=== PATIENT | female | born 1995 | race Caucasian/White ===

== ENCOUNTER 2018-04-13 19:45 | Emergency (ER) | payer SELFPAY ==
[2018-04-13 20:23] VITALS: BP 111/71; TEMP 98; O2SAT 99
[2018-04-13] MEDS ORDERED: predniSONE 20 MG TAB PO ONE (20:28)
[2018-04-13] MEDS ORDERED: CETIRIZINE HCL 10 MG TAB PO ONE (20:28)
--- NOTE | 2018-04-13 20:31 | ED.PDOC ---
History of Present Illness - General Chief Complaint: General Stated Complaint: sore tongue Time Seen by Provider: 04/13/18 20:21 Source: patient Exam Limitations: no limitations - History of Present Illness Initial Comments: The patient a 23-year-old female presenting to the emergency room secondary to mouth symptoms. The patient has had some mild numbness of her mouth in general for the last couple of days with some poor taste. This evening she started noticing some burning and swelling primarily to her left cheek and mildly to the roof of her mouth. No shortness of breath or hoarseness. No rash elsewhere. 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 No fevers. No chest pain. No evidence of any bleeding. Timing/Duration: unsure Severity: mild Improving Factors: nothing Worsening Factors: nothing Associated Symptoms: denies symptoms Allergies/Adverse Reactions: Allergies NO KNOWN ALLERGY Allergy (Unverified 01/16/14 23:58) Home Medications: Ambulatory Orders predniSONE [Prednisone] 20 mg PO DAILY #3 tab 04/13/18 Review of Systems - Review of Systems Constitutional: States: no symptoms reported EENTM: States: see HPI Respiratory: States: no symptoms reported Cardiology: States: no symptoms reported Gastrointestinal/Abdominal: States: no symptoms reported Genitourinary: States: no symptoms reported Musculoskeletal: States: no symptoms reported Skin: States: no symptoms reported Neurological: States: no symptoms reported Endocrine: States: no symptoms reported All other Systems: No Change from Baseline Past Medical History (General) - Patient Medical History Hx Seizures: No Hx Stroke: No Hx Dementia: No Hx Asthma: No Hx of COPD: No Hx Cardiac Disorders: No Hx Congestive Heart Failure: No Hx Pacemaker: No Hx Hypertension: No Hx Thyroid Disease: No Hx Diabetes: No Hx Gastroesophageal Reflux: No Hx Renal Disease: No Hx Cancer: No Hx of HIV: No Hx Hepatitis C: No Hx MRSA: No Surgical History: appendectomy, tonsillectomy - Vaccination History Hx Tetanus, Diphtheria Vaccination: Yes Hx Influenza Vaccination: No Hx Pneumococcal Vaccination: No Immunizations Up to Date: No - Social History Hx Tobacco Use: No Hx Alcohol Use: No Hx Substance Use: No Hx Substance Use Treatment: No Hx Depression: No Hx Physical Abuse: No Hx Emotional Abuse: No Hx Suspected Abuse: No - Female History Hx Last Menstrual Period: 03/17/14 Patient : Yes Expected Date of Delivery:: 03/08/14 Family Medical History - Family History Grandparents Living Status: Still Living Hx Cardiac Disease: Yes - HEART BY PASS Hx Family Diabetes: Yes Physical Exam - Physical Exam General Appearance: Alert, Comfortable, No apparent distress Eye Exam: bilateral normal Ears, Nose, Throat: hearing grossly normal, other - see history of present illness. The patient has a 1 inch diameter area of mucosalerythema and mild edema to the left cheek. She does have mild diffuse papillitis. No posterior oropharynx erythema or exudate. No abscess. 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 It is likely viral versus allergic and most likely allergic. The patient is going to be given a dose of prednisone and Zyrtec here tonight. She'll be written for 20 mg of prednisone daily for the next 3 days and she can take Zyrtec nightly for the next week. I would encourage her to avoid eating the skilled nursing food for now as there may be preservative triggering the reaction. Keep well-hydrated. Return to the emergency room for any significant worsening. There is no evidence of pulmonary symptoms or angioedema at this time. Keep follow-up with primary care doctor as otherwise scheduled previously. Departure - Departure Clinical Impression: Stomatitis and mucositis, unspecified Disposition: Discharge to Home or Self Care Condition: Fair Departure Forms: ED Discharge - Pt. Copy, Patient Portal Self Enrollment Diet: regular diet Activity: increase activity as tolerated Prescriptions: predniSONE [Prednisone] 20 mg PO DAILY #3 tab Home Medications: Ambulatory Orders predniSONE [Prednisone] 20 mg PO DAILY #3 tab 04/13/18 Additional Instructions: the patient is a 23-year-old female presenting to the emergency room with what is a stomatitis of uncertain origin. It is likely viral versus allergic and most likely allergic. The patient is going to be given a dose of prednisone and Zyrtec here tonight. She'll be written for 20 mg of prednisone daily for the next 3 days and she can take Zyrtec nightly for the next week. I would encourage her to avoid eating the skilled nursing food for now as there may be preservative triggering the reaction. Keep well-hydrated. Return to the emergency room for any significant worsening. There is no evidence of pulmonary symptoms or angioedema at this time. Keep follow-up with primary care doctor as otherwise scheduled previously.
== END 2018-04-13 20:55 | disposition home or self-care (01) ==
LOC: ER 19:45
DX: K12.1 Other forms of stomatitis (principal)

== ENCOUNTER 2018-07-04 01:36 | Emergency (ER) | payer SELFPAY ==
[2018-07-04 02:00] VITALS: TEMP 98.7
--- NOTE | 2018-07-04 02:30 | RAD ---
2 VIEWS left FOREARM RADIOGRAPHIC SERIES. INDICATIONS: Worsening pain. COMPARISONS: None currently available. FINDINGS: No fractures or dislocations. The partially visualized left wrist and left elbow and back are intact. No evidence of carpal bone osteonecrosis. No radiopaque soft tissue foreign bodies or soft tissue gas. IMPRESSION: 1. Normal examination. Electronically signed by: Melo Staley MD 07/04/2018 2:29 AM CDT
--- NOTE | 2018-07-04 02:37 | RAD ---
The VIEWS LEFT WRIST RADIOGRAPHIC SERIES. INDICATIONS: Increasing chronic pain. COMPARISONS: Today's forearm radiographs. FINDINGS: 4 mm positive ulnar variance without evidence of carpal bone osteonecrosis. No fractures or dislocations. Benign-appearing 4 mm cystic structure structure in the distal left scaphoid bone. The distal left radius and ulna are intact. No radiopaque soft tissue foreign bodies or soft tissue gas. IMPRESSION: 1. 4 mm positive ulnar variance without evidence of carpal bone osteonecrosis. 2. No fractures, dislocations or evidence of DISI deformity. 3. Benign-appearing well-demarcated 4 mm cyst in the distal left scaphoid bone. Electronically signed by: Melo Staley MD 07/04/2018 2:36 AM CDT
--- NOTE | 2018-07-04 02:49 | ED.PDOC ---
History of Present Illness - General Chief Complaint: Upper Extremity Injury Stated Complaint: left forearm pain Time Seen by Provider: 07/04/18 02:42 Source: patient Exam Limitations: no limitations - History of Present Illness Initial Comments: Lacie Roland 23 y/o female stated that she had been having sharp pains on her left forearm for the last 2 days intermittenly aggravated by stretching her left wrist upwards.Denies history of trauma or repetetive movement with left wrist/forearm.She is right handed.No history of previous injury.No numbness or tingling sensation Occurred: other - 2 days ago Pain - Upper Extremity: moderate: Forearm, left, Wrist, left Method of Injury: unknown Improving Factors: rest Worsening Factors: movement Allergies/Adverse Reactions: Allergies NO KNOWN ALLERGY Allergy (Unverified 01/16/14 23:58) Home Medications: Ambulatory Orders predniSONE [Prednisone] 20 mg PO DAILY #3 tab 04/13/18 Review of Systems - Review of Systems Constitutional: States: no symptoms reported EENTM: States: no symptoms reported Respiratory: States: no symptoms reported Cardiology: States: no symptoms reported Gastrointestinal/Abdominal: States: no symptoms reported Genitourinary: States: no symptoms reported Musculoskeletal: States: see HPI Skin: States: no symptoms reported Past Medical History (General) - Patient Medical History Hx Seizures: No Hx Stroke: No Hx Dementia: No Hx Asthma: No Hx of COPD: No Hx Cardiac Disorders: No Hx Congestive Heart Failure: No Hx Pacemaker: No Hx Hypertension: No Hx Thyroid Disease: No Hx Diabetes: No Hx Gastroesophageal Reflux: No Hx Renal Disease: No Hx Cancer: No Hx of HIV: No Hx Hepatitis C: No Hx MRSA: No Surgical History: appendectomy, tonsillectomy, other - fundoplication, tympanostomy tubes,,endometriosis diathermy - Vaccination History Hx Tetanus, Diphtheria Vaccination: Yes Hx Influenza Vaccination: No Hx Pneumococcal Vaccination: No - Social History Hx Tobacco Use: No Hx Alcohol Use: No Hx Substance Use: No Hx Substance Use Treatment: No Hx Depression: No Hx Physical Abuse: No Hx Emotional Abuse: No Hx Suspected Abuse: No - Female History Patient is a Female of Child Bearing Age (10 -59 yrs old): Yes Hx Last Menstrual Period: 03/17/14 Patient : No Expected Date of Delivery:: 03/08/14 - Triage Comment ED Triage Comment: Denies any known trauma to left forearm, gradual increase in pain over past two days Family Medical History - Family History Grandparents Living Status: Still Living Hx Cardiac Disease: Yes - HEART BY PASS Hx Family Diabetes: Yes Physical Exam - Physical Exam General Appearance: Alert, Comfortable, No apparent distress Eyes, Ears, Nose, Throat Exam: normal ENT inspection Neck: non-tender, supple, normal inspection Cardiovascular/Respiratory: regular rate, rhythm, normal peripheral pulses, normal breath sounds Abdominal Exam: non-tender, no organomegaly Back Exam: no CVA tenderness, no vertebral tenderness Shoulder Exam: normal inspection, non-tender, no evidence of injury, normal ROM Elbow/Forearm Exam: normal inspection, no evidence of injury, bone tenderness, limited ROM - pain on extension of foream wrist left, soft tissue tenderness Wrist Exam: no evidence of injury, limited ROM - left wrist-pain on extension Hand Exam: normal inspection, non-tender, no evidence of injury Neuro/Tendon: normal sensation, normal motor functions, normal tendon functions , no evidence tendon injury Mental Status: alert, oriented x 3 Progress - Progress Progress: 07/04/18 03:00 Vital Signs - 8 hr 07/04/18 01:52 Temperature 98.7 F Pulse Rate [ 68 Left] Respiratory 16 Rate Blood Pressure 109/72 [Right Arm] O2 Sat by Pulse 99 Oximetry - EKG/XRAY/CT XRAY: forearm - left-4 mm cyst scaphoid,no fracture/dislocation Departure - Departure Clinical Impression: Left forearm pain, Tendinitis of forearm Time of Disposition: 03:02 Disposition: Discharge to Home or Self Care Condition: Good Departure Forms: ED Discharge - Pt. Copy, Patient Portal Self Enrollment Instructions: Tendonitis, Tendonitis (DC), Tendinopathy (DC) Home Medications: Ambulatory Orders predniSONE [Prednisone] 20 mg PO DAILY #3 tab 04/13/18 Additional Instructions: Need to follow up with primary Md for referral to orthopedist;May take ALEVE( over the counter)1-2 tablets am/pm for pain;May GO BACK to WORK WITHOUT RESTRICTIONS
[2018-07-04] MEDS ORDERED: KETOROLAC TROMETHAMINE INJ 30 MG/ML VIAL IM ONE (03:03)
[2018-07-04 03:30] VITALS: BP 110/70; O2SAT 100
== END 2018-07-04 03:30 | disposition home or self-care (01) ==
LOC: ER 01:36
DX: M77.9 Enthesopathy, unspecified (principal); M85.442 Solitary bone cyst, left hand
CPT/HCPCS: 73090; 73110; J1885

== ENCOUNTER 2018-10-02 12:37 | Emergency (ER) | payer SELFPAY ==
[2018-10-02] MEDS ORDERED: ONDANSETRON INJ 4 MG/2 ML VIAL IM ONE (13:13)
--- NOTE | 2018-10-02 13:16 | ED.PDOC ---
History of Present Illness - General Chief Complaint: General Stated Complaint: Congestion, cough, fever Time Seen by Provider: 10/02/18 13:12 Source: patient Exam Limitations: no limitations - History of Present Illness Initial Comments: FEVER, COUGH. NASAL CONGESTION AND VOMITING SINCE WEDNESDAY. ON HER PERIOD. Timing/Duration: other - FIVE DAYS AGO Improving Factors: nothing Worsening Factors: nothing Associated Symptoms: cough, fever/chills, malaise Allergies/Adverse Reactions: Allergies NO KNOWN ALLERGY Allergy (Verified 10/02/18 12:57) Home Medications: Ambulatory Orders Ondansetron HCl [Zofran] 4 mg PO Q8HRS #6 ml 10/02/18 Review of Systems - Review of Systems Constitutional: States: fever EENTM: States: nose congestion Respiratory: States: cough Cardiology: States: no symptoms reported Gastrointestinal/Abdominal: States: no symptoms reported Genitourinary: States: no symptoms reported Musculoskeletal: States: no symptoms reported Skin: States: no symptoms reported Neurological: States: no symptoms reported Endocrine: States: no symptoms reported Hematologic/Lymphatic: States: no symptoms reported Past Medical History (General) - Patient Medical History Hx Seizures: No Hx Stroke: No Hx Dementia: No Hx Asthma: No Hx of COPD: No Hx Cardiac Disorders: No Hx Congestive Heart Failure: No Hx Pacemaker: No Hx Hypertension: No Hx Thyroid Disease: No Hx Diabetes: No Hx Gastroesophageal Reflux: No Hx Renal Disease: No Hx Cancer: No Hx of HIV: No Hx Hepatitis C: No Hx MRSA: No Surgical History: appendectomy, tonsillectomy, other - Vaccination History Hx Tetanus, Diphtheria Vaccination: Yes Hx Influenza Vaccination: No Hx Pneumococcal Vaccination: No - Social History Hx Tobacco Use: No Hx Alcohol Use: No Hx Substance Use: No Hx Substance Use Treatment: No Hx Depression: No Hx Physical Abuse: No Hx Emotional Abuse: No Hx Suspected Abuse: No - Female History Patient is a Female of Child Bearing Age (10 -59 yrs old): Yes Hx Last Menstrual Period: 03/17/14 Patient : No Expected Date of Delivery:: 03/08/14 Family Medical History - Family History Grandparents Living Status: Still Living Hx Cardiac Disease: Yes - CABG Hx Family Diabetes: Yes Physical Exam - Physical Exam General Appearance: Alert, No apparent distress, Well Developed, Well Hydrated Eye Exam: bilateral normal Ears, Nose, Throat: nasal congestion Neck: non-tender, full range of motion, supple Respiratory: lungs clear, normal breath sounds Cardiovascular/Chest: normal peripheral pulses, regular rate, rhythm, no edema, no gallop, no JVD, no murmur Peripheral Pulses: radial,right: 2+, radial,left: 2+ Gastrointestinal/Abdominal: normal bowel sounds, non tender, soft, no organomegaly, no pulsatile mass Rectal Exam: deferred Extremity: normal range of motion Neurologic: no motor/sensory deficits, normal mood/affect, oriented x 3 Skin Exam: normal color Progress - Progress Progress: 10/02/18 14:50 THE INFLUENZA TEST IS NEGATIVE. Departure - Departure Clinical Impression: Flu-like symptoms, Vomiting Time of Disposition: 14:51 Disposition: Discharge to Home or Self Care Condition: Good Departure Forms: ED Discharge - Pt. Copy, Patient Portal Self Enrollment Diet: resume usual diet Activity: increase activity as tolerated Prescriptions: Ondansetron HCl [Zofran] 4 mg PO Q8HRS #6 ml Home Medications: Ambulatory Orders Ondansetron HCl [Zofran] 4 mg PO Q8HRS #6 ml 10/02/18
[2018-10-02 15:14] VITALS: BP 126/77; TEMP 98.2; O2SAT 97
== END 2018-10-02 15:13 | disposition home or self-care (01) ==
LOC: ER 12:37
DX: J11.1 Influenza due to unidentified influenza virus with other respiratory manifestations (principal); R11.10 Vomiting, unspecified; Z90.49 Acquired absence of other specified parts of digestive tract
CPT/HCPCS: 87804; J2405

== ENCOUNTER 2018-10-08 10:58 | Emergency (ER) | payer SELFPAY ==
--- NOTE | 2018-10-08 11:38 | ED.PDOC ---
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 Timing/Duration: yesterday Quality: moderate Onset Location: other - epigastric Radiation: none Activites at Onset: other - see hpi Prior abdominal problems: none Sexual intercourse history: less than 2 months ago Improving Factors: nothing Worsening Factors: eating Associated Symptoms: other - see hpi Allergies/Adverse Reactions: Allergies NO KNOWN ALLERGY Allergy (Verified 10/02/18 12:57) Home Medications: Ambulatory Orders Biotin [Biotin Gummies] 1,000 mcg PO DAILY 10/08/18 Tramadol HCl 50 mg PO TID PRN #14 tab 10/08/18 Valacyclovir HCl [Valtrex] 1 gm PO BID 10 Days #20 tab 10/08/18 Review of Systems - Review of Systems Gastrointestinal/Abdominal: States: see HPI Genitourinary: States: see HPI All other Systems: Reviewed and Negative, No Change from Baseline Past Medical History (General) - Patient Medical History Hx Seizures: No Hx Stroke: No Hx Dementia: No Hx Asthma: No Hx of COPD: No Hx Cardiac Disorders: No Hx Congestive Heart Failure: No Hx Pacemaker: No Hx Hypertension: No Hx Thyroid Disease: No Hx Diabetes: No Hx Gastroesophageal Reflux: No Hx Renal Disease: No Hx Cancer: No Hx of HIV: No Hx Hepatitis C: No Hx MRSA: No Hx Other PMH: Yes - endometriosis Surgical History: appendectomy, tonsillectomy, other - ,hiatal hernia, tympanostomy tubes,laparoscopic explore-endometriosis - Vaccination History Hx Tetanus, Diphtheria Vaccination: Yes Hx Influenza Vaccination: No Hx Pneumococcal Vaccination: No - Social History Hx Tobacco Use: No Hx Alcohol Use: No Hx Substance Use: No Hx Substance Use Treatment: No Hx Depression: No Hx Physical Abuse: No Hx Emotional Abuse: No Hx Suspected Abuse: No - Female History Hx Last Menstrual Period: 03/17/14 Patient : No Expected Date of Delivery:: 03/08/14 Family Medical History - Family History Grandparents Living Status: Still Living Hx Cardiac Disease: Yes - CABG Hx Family Diabetes: Yes Physical Exam - Physical Exam General Appearance: Alert, Comfortable, No apparent distress Eyes, Ears, Nose, Throat Exam: normal ENT inspection Neck: non-tender, supple Cardiovascular/Respiratory: regular rate, rhythm, no M/R/G, normal peripheral pulses Gastrointestinal/Abdominal: normal bowel sounds, non tender, soft, no organomegaly Pelvic Exam: no cerv. motion tender, no masses, lesions, other - aphthae like eruption cervix and left lateral vaginal wall as wellas labia majora Extremity: no pedal edema, no calf tenderness Neurologic: alert, oriented x 3 Skin Exam: normal color, warm/dry Progress - Progress Progress: 10/08/18 11:56 Vital Signs - 8 hr 10/08/18 11:05 Temperature 99.7 F H Pulse Rate [ 101 H left brachial] Respiratory 20 Rate Blood Pressure 113/80 [left brachial] O2 Sat by Pulse 98 Oximetry 10/08/18 12:18 Took different culture swab not intended for the herpes culture and ask permission from the patient to get confirmatory findings but declined to have repeat pelvic exam done.Explained to patient the genital typical of herpes simplex genitalis and explained that needs medications agrred with plan and 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 - Results/Orders Results/Orders: 10/08/18 11:38 URINE CULTURE W/COLONY COUNT Stat HERPES CULTURE RAPID Stat 10/08/18 11:39 GC CHLAMYDIA RNA,TMA Routine 10/08/18 21:00 valACYclovir [Valtrex] 1,000 mg PO BID Laboratory Results - last 24 hr 10/08/18 10/08/18 10/08/18 11:38 12:14 12:14 WBC 6.1 RBC 4.65 Hgb 13.0 Hct 39.0 MCV 83.8 MCH 28.0 MCHC 33.4 RDW 14.5 Plt Count 241 MPV 8.0 Absolute Neuts (auto) 4.40 Absolute Lymphs (auto) 1.00 Absolute Monos (auto) 0.60 Absolute Eos (auto) 0.10 Absolute Basos (auto) 0.00 Neutrophils % 72.3 Lymphocytes % 16.9 L Monocytes % 9.2 H Eosinophils % 1.3 Basophils % 0.3 Sodium 140 Potassium 4.1 Chloride 106 Carbon Dioxide 27 Anion Gap 11.1 L BUN 10 Creatinine 0.79 BUN/Creatinine Ratio 12.7 Random Glucose 88 Serum Osmolality 277.9 Calcium 9.0 Urine Color Yellow Urine Appearance Clear Urine pH 5.5 Ur Specific [place] >= 1.030 Urine Protein Trace Urine Glucose (UA) Negative Urine Ketones Negative Urine Blood Trace-intact H Urine Nitrite Negative Urine Bilirubin Negative Urine Urobilinogen 0.2 Ur Leukocyte Esterase Small H Urine RBC 5-10 H Urine WBC 5-10 H Ur Epithelial Cells 3-5 Urine Bacteria 1+ Urine Mucus Small Urine HCG, Qual 10/08/18 Unknown WBC RBC Hgb Hct MCV MCH MCHC RDW Plt Count MPV Absolute Neuts (auto) Absolute Lymphs (auto) Absolute Monos (auto) Absolute Eos (auto) Absolute Basos (auto) Neutrophils % Lymphocytes % Monocytes % Eosinophils % Basophils % Sodium Potassium Chloride Carbon Dioxide Anion Gap BUN Creatinine BUN/Creatinine Ratio Random Glucose Serum Osmolality Calcium Urine Color Urine Appearance Urine pH Ur Specific [place] Urine Protein Urine Glucose (UA) Urine Ketones Urine Blood Urine Nitrite Urine Bilirubin Urine Urobilinogen Ur Leukocyte Esterase Urine RBC Urine WBC Ur Epithelial Cells Urine Bacteria Urine Mucus Urine HCG, Qual Negative Departure - Departure Clinical Impression: Vaginal pain, Vaginal lesion, Abdominal discomfort, epigastric Time of Disposition: 12:43 Disposition: Discharge to Home or Self Care Condition: Fair Departure Forms: ED Discharge - Pt. Copy, Patient Portal Self Enrollment Instructions: Pelvic Inflammatory Disease, Genital Herpes, Chlamydia and Gonorrhea, Pelvic Inflammatory Disease (DC), Genital Herpes (DC), Screening for Sexually Transmitted Infections Prescriptions: Tramadol HCl 50 mg PO TID PRN #14 tab PRN Reason: Pain Valacyclovir HCl [Valtrex] 1 gm PO BID 10 Days #20 tab Home Medications: Ambulatory Orders Biotin [Biotin Gummies] 1,000 mcg PO DAILY 10/08/18 Tramadol HCl 50 mg PO TID PRN #14 tab 10/08/18 Valacyclovir HCl [Valtrex] 1 gm PO BID 10 Days #20 tab 10/08/18 Additional Instructions: Keep your appointment with CULINARY ARTIST 12 Oct 2018;return to ER as needed
[2018-10-08 11:41] VITALS: BP 113/80; TEMP 99.7; O2SAT 98
[2018-10-08] MEDS: SUCRALFATE 1 GM/10 ML 1 GM UD PO ONE (12:01)
[2018-10-08] MEDS: PANTOPRAZOLE SODIUM TAB 40 MG PO ONE (12:01)
[2018-10-08] MEDS: PROMETHAZINE HCL 25 MG TAB PO ONE (12:01)
[2018-10-08] MEDS: AZITHROMYCIN 250 MG TAB PO ONE (12:13)
[2018-10-08] MEDS ORDERED: valACYclovir 500 MG TAB ONE (12:26)
[2018-10-08] MEDS: valACYclovir 500 MG TAB PO SCH (12:28)
== END 2018-10-08 12:52 | disposition home or self-care (01) ==
LOC: ER 10:58
DX: N89.8 Other specified noninflammatory disorders of vagina (principal); R10.2 Pelvic and perineal pain; R10.13 Epigastric pain; R11.2 Nausea with vomiting, unspecified; Z87.42 Personal history of other diseases of the female genital tract
CPT/HCPCS: 36415; 80048; 81001; 81025; 85025; 87086; 87491; 87591; J0696; Q0144; Q0169

== ENCOUNTER 2018-10-29 20:10 | Emergency (ER) | payer BC ==
[2018-10-29] MEDS ORDERED: ONDANSETRON ODT 8 MG TAB SL ONE (20:25)
[2018-10-29 20:38] VITALS: BP 113/69; TEMP 99.3; O2SAT 95
--- NOTE | 2018-10-29 20:46 | ED.PDOC ---
History of Present Illness - General Chief Complaint: GI Problem Stated Complaint: N/V x's 2 days Time Seen by Provider: 10/29/18 20:20 Source: patient Exam Limitations: no limitations - History of Present Illness Initial Comments: the patient is a 23-year-old female presenting to emergency room secondary to 24 hours of nausea with a couple of episodes of vomiting. No diarrhea. No abdominal pain. Questionable low-grade fevers. No sore throat. No cough. Her significant other had some nausea and vomiting 3 days ago. Timing/Duration: 24 hours Severity: mild Improving Factors: nothing Worsening Factors: nothing Associated Symptoms: loss of appetite, nausea/vomiting Allergies/Adverse Reactions: Allergies NO KNOWN ALLERGY Allergy (Verified 10/29/18 20:37) Home Medications: Ambulatory Orders Ondansetron [Zofran Odt] 4 mg PO Q4H PRN #10 tab 10/29/18 Review of Systems - Review of Systems Constitutional: States: fever, malaise EENTM: States: no symptoms reported Respiratory: States: no symptoms reported Cardiology: States: no symptoms reported Gastrointestinal/Abdominal: States: nausea, vomiting. Denies: abdominal pain, constipation, diarrhea Genitourinary: States: no symptoms reported Musculoskeletal: States: no symptoms reported Skin: States: no symptoms reported Neurological: States: no symptoms reported All other Systems: No Change from Baseline Past Medical History (General) - Patient Medical History Hx Seizures: No Hx Stroke: No Hx Dementia: No Hx Asthma: No Hx of COPD: No Hx Cardiac Disorders: No Hx Congestive Heart Failure: No Hx Pacemaker: No Hx Hypertension: No Hx Thyroid Disease: No Hx Diabetes: No Hx Gastroesophageal Reflux: No Hx Renal Disease: No Hx Cancer: No Hx of HIV: No Hx Hepatitis C: No Hx MRSA: No Surgical History: appendectomy, tonsillectomy - Vaccination History Hx Tetanus, Diphtheria Vaccination: Yes Hx Influenza Vaccination: No Hx Pneumococcal Vaccination: No - Social History Hx Tobacco Use: No Hx Alcohol Use: No Hx Substance Use: No Hx Substance Use Treatment: No Hx Depression: No Hx Physical Abuse: No Hx Emotional Abuse: No Hx Suspected Abuse: No - Female History Hx Last Menstrual Period: 03/17/14 Patient : No Expected Date of Delivery:: 03/08/14 Family Medical History - Family History Grandparents Living Status: Still Living Hx Cardiac Disease: Yes - CABG Hx Family Diabetes: Yes Physical Exam - Physical Exam General Appearance: Alert, Comfortable, No apparent distress Eye Exam: bilateral normal Ears, Nose, Throat: hearing grossly normal, normal ENT inspection, normal pharynx Neck: full range of motion, supple Respiratory: lungs clear, normal breath sounds, no respiratory distress, no accessory muscle use Cardiovascular/Chest: normal peripheral pulses, regular rate, rhythm, no edema Peripheral Pulses: radial,right: 2+, radial,left: 2+, dorsalis pedis,right: 2+, dorsalis pedis,left: 2+ Gastrointestinal/Abdominal: non tender, soft Rectal Exam: deferred Back Exam: normal inspection Extremity: non-tender, no pedal edema, normal capillary refill 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 A close contact had similar symptoms a few days ago. She needs to keep herself well-hydrated. She'll be written for Zofran for as needed use to control any nausea and vomiting. She should expect symptoms for the next 24-48 hours. ER warnings were given for any significant worsening. A bland diet with small frequent meals is recommended. Departure - Departure Clinical Impression: Gastroenteritis Disposition: Discharge to Home or Self Care Condition: Fair Departure Forms: ED Discharge - Pt. Copy, Patient Portal Self Enrollment Instructions: Viral Gastroenteritis, Adult (DC) Diet: bland diet Activity: increase activity as tolerated Prescriptions: Ondansetron [Zofran Odt] 4 mg PO Q4H PRN #10 tab PRN Reason: Vomiting Home Medications: Ambulatory Orders Ondansetron [Zofran Odt] 4 mg PO Q4H PRN #10 tab 10/29/18 Additional Instructions: The patient's 23-year-old female presenting to the emergency room with what appears to be a viral gastroenteritis. A close contact had similar symptoms a few days ago. She needs to keep herself well-hydrated. She'll be written for Zofran for as needed use to control any nausea and vomiting. She should expect symptoms for the next 24-48 hours. ER warnings were given for any significant worsening. A bland diet with small frequent meals is recommended.
[2018-10-29] MEDS ORDERED: ACETAMINOPHEN 325 MG TAB PO ONE (20:47)
== END 2018-10-29 21:07 | disposition home or self-care (01) ==
LOC: ER 20:10
DX: K52.9 Noninfective gastroenteritis and colitis, unspecified (principal); Z90.49 Acquired absence of other specified parts of digestive tract

== ENCOUNTER 2018-12-23 14:15 | Emergency (ER) | payer BC ==
--- NOTE | 2018-12-23 14:38 | ED.PDOC ---
History of Present Illness - General Chief Complaint: GI Problem Time Seen by Provider: 12/23/18 14:38 Source: patient, RN notes reviewed Exam Limitations: no limitations Additional Information: 23 YEAR OLD PRESENTS WITH VOMITING DIARRHEA SINCE YESTERDAY AFTERNOON ASSOCIATED WITH ABDOMINAL PAIN ( CRAMPS ) NO BLOOD OR MUCOUS IN STOOLS HER DAUGHTER HAD SIMILAR SYMPTOMS JUST RECOVERED - History of Present Illness Timing/Duration: 24 hours Severity: moderate Improving Factors: nothing Worsening Factors: nothing Associated Symptoms: denies symptoms Allergies/Adverse Reactions: Allergies NO KNOWN ALLERGY Allergy (Verified 10/29/18 20:37) Home Medications: Ambulatory Orders Promethazine Tab [Phenergan Tablet] 25 mg PO .Q4H #20 tab 12/23/18 Review of Systems - Review of Systems Constitutional: States: malaise, weakness EENTM: States: no symptoms reported Respiratory: States: no symptoms reported Cardiology: States: no symptoms reported Gastrointestinal/Abdominal: States: see HPI Genitourinary: States: no symptoms reported Musculoskeletal: States: no symptoms reported Skin: States: no symptoms reported Neurological: States: no symptoms reported Endocrine: States: no symptoms reported Hematologic/Lymphatic: States: no symptoms reported Past Medical History (General) - Patient Medical History Hx Seizures: No Hx Stroke: No Hx Dementia: No Hx Asthma: No Hx of COPD: No Hx Cardiac Disorders: No Hx Congestive Heart Failure: No Hx Pacemaker: No Hx Hypertension: No Hx Thyroid Disease: No Hx Diabetes: No Hx Gastroesophageal Reflux: No Hx Renal Disease: No Hx Cancer: No Hx of HIV: No Hx Hepatitis C: No Hx MRSA: No - Vaccination History Hx Tetanus, Diphtheria Vaccination: Yes Hx Influenza Vaccination: No Hx Pneumococcal Vaccination: No - Social History Hx Tobacco Use: No Hx Alcohol Use: No Hx Substance Use: No Hx Substance Use Treatment: No Hx Depression: No Hx Physical Abuse: No Hx Emotional Abuse: No Hx Suspected Abuse: No - Female History Hx Last Menstrual Period: 03/17/14 Patient : No Expected Date of Delivery:: 03/08/14 Family Medical History - Family History Grandparents Living Status: Still Living Hx Cardiac Disease: Yes - CABG Hx Family Diabetes: Yes Physical Exam - Physical Exam General Appearance: Alert, Comfortable Ears, Nose, Throat: hearing grossly normal, normal ENT inspection, normal pharynx Neck: non-tender, full range of motion, supple Respiratory: chest non-tender, lungs clear, normal breath sounds, no respiratory distress, no accessory muscle use, respiratory distress, decreased breath sounds Cardiovascular/Chest: normal peripheral pulses, regular rate, rhythm, no edema, no gallop, no JVD, no murmur Gastrointestinal/Abdominal: normal bowel sounds, non tender, soft, no organomegaly, no pulsatile mass Back Exam: normal inspection, no CVA tenderness, no vertebral tenderness Extremity: normal range of motion, non-tender, normal inspection 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 Copy, Patient Portal Self Enrollment Diet: full liquid diet Activity: walking as tolerated Prescriptions: Promethazine Tab [Phenergan Tablet] 25 mg PO .Q4H #20 tab Home Medications: Ambulatory Orders Promethazine Tab [Phenergan Tablet] 25 mg PO .Q4H #20 tab 12/23/18
[2018-12-23 14:45] VITALS: TEMP 98.9
[2018-12-23] MEDS ORDERED: SODIUM CHLORIDE 0.9% 1000ML 1,000 ML IVS ONE (14:45)
[2018-12-23] MEDS ORDERED: ONDANSETRON INJ 4 MG/2 ML VIAL IV ONE (14:45)
[2018-12-23] MEDS ORDERED: ONDANSETRON ODT 8 MG TAB ONE (15:03)
[2018-12-23 15:23] VITALS: BP 114/87; O2SAT 97
== END 2018-12-23 15:22 | disposition home or self-care (01) ==
LOC: ER 14:15
DX: K52.9 Noninfective gastroenteritis and colitis, unspecified (principal)

== ENCOUNTER 2019-01-20 19:06 | Emergency (ER) | payer BC ==
[2019-01-20 19:22] VITALS: BP 115/62; TEMP 99; O2SAT 97
[2019-01-20] MEDS ORDERED: ONDANSETRON ODT 8 MG TAB SL ONE (19:23)
--- NOTE | 2019-01-20 19:27 | ED.PDOC ---
History of Present Illness - General Chief Complaint: GI Problem Stated Complaint: N/V Time Seen by Provider: 01/20/19 19:18 Source: patient Exam Limitations: no limitations - History of Present Illness Initial Comments: Patient presents with N/V x three yesterday. She has had mild nausea today. No diarrhea. She is able to eat. Denies abdominal pain. No similarly sick contact s. Is s/p appendectomy and hiatal hernia repair. No other complaints. Timing/Duration: 24 hours Severity: mild Improving Factors: nothing Worsening Factors: nothing Associated Symptoms: denies symptoms Allergies/Adverse Reactions: Allergies NO KNOWN ALLERGY Allergy (Verified 01/20/19 19:22) Home Medications: Ambulatory Orders Multiple Vitamins W/ Minerals [Multivitamin Adults] 1 tab PO DAILY 01/20/19 Review of Systems - Review of Systems Constitutional: States: no symptoms reported EENTM: States: no symptoms reported Respiratory: States: no symptoms reported Cardiology: States: no symptoms reported Gastrointestinal/Abdominal: States: see HPI Genitourinary: States: no symptoms reported Musculoskeletal: States: no symptoms reported Skin: States: no symptoms reported Neurological: States: no symptoms reported Endocrine: States: no symptoms reported Hematologic/Lymphatic: States: no symptoms reported Past Medical History (General) - Patient Medical History Hx Seizures: No Hx Stroke: No Hx Dementia: No Hx Asthma: No Hx of COPD: No Hx Cardiac Disorders: No Hx Congestive Heart Failure: No Hx Pacemaker: No Hx Hypertension: No Hx Thyroid Disease: No Hx Diabetes: No Hx Gastroesophageal Reflux: No Hx Renal Disease: No Hx Cancer: No Hx of HIV: No Hx Hepatitis C: No Hx MRSA: No Surgical History: appendectomy, tonsillectomy - Vaccination History Hx Tetanus, Diphtheria Vaccination: Yes Hx Influenza Vaccination: No Hx Pneumococcal Vaccination: No - Social History Hx Tobacco Use: No Hx Alcohol Use: No Hx Substance Use: No Hx Substance Use Treatment: No Hx Depression: No Hx Physical Abuse: No Hx Emotional Abuse: No Hx Suspected Abuse: No - Female History Hx Last Menstrual Period: 03/17/14 Patient : No Expected Date of Delivery:: 03/08/14 Family Medical History - Family History Grandparents Living Status: Still Living Hx Cardiac Disease: Yes - CABG Hx Family Diabetes: Yes Physical Exam - Physical Exam General Appearance: Alert Respiratory: lungs clear, normal breath sounds Cardiovascular/Chest: normal peripheral pulses, regular rate, rhythm, no edema Gastrointestinal/Abdominal: normal bowel sounds, non tender, soft Back Exam: normal inspection, no CVA tenderness Skin Exam: normal color Lymphatic: no adenopathy Progress - Progress Progress: 01/20/19 19:26 Patient refuses an IV or laboratory tests. She was given Zofran 4 mg ODT x one and a take home pack of Zofran. She requested a work note and was given one for one day. Departure - Departure Clinical Impression: Nausea & vomiting Disposition: Discharge to Home or Self Care Condition: Good Departure Forms: ED Discharge - Pt. Copy, Patient Portal Self Enrollment Diet: resume usual diet Activity: increase activity as tolerated Home Medications: Ambulatory Orders Multiple Vitamins W/ Minerals [Multivitamin Adults] 1 tab PO DAILY 01/20/19 Additional Instructions: Increase oral fluids. Return to the E.R if vomiting persists for more than two days without diarrhea. Return for diarrhea that lasts more than 72 hours or is bloody. Return for a temperature above 100.4. Return for increasing abdominal pain. Take medications as prescribed.
[2019-01-20] MEDS ORDERED: ONDANSETRON ODT (ER DISP) 8 MG TAB PO ONE (19:29)
== END 2019-01-20 19:40 | disposition home or self-care (01) ==
LOC: ER 19:06
DX: R11.2 Nausea with vomiting, unspecified (principal); Z90.49 Acquired absence of other specified parts of digestive tract

== ENCOUNTER 2019-02-21 21:05 | Emergency (ER) | payer BC ==
[2019-02-21 21:52] VITALS: BP 107/63; TEMP 99.2; O2SAT 99
--- NOTE | 2019-02-22 00:45 | ED.PDOC ---
History of Present Illness - General Chief Complaint: Skin/Abrasion/Tear Stated Complaint: Laser dutta to hands - History of Present Illness Allergies/Adverse Reactions: Allergies NO KNOWN ALLERGY Allergy (Verified 01/20/19 19:22) Home Medications: Ambulatory Orders Anxiety Med PRN 02/21/19 Past Medical History (General) - Patient Medical History Hx Seizures: No Hx Stroke: No Hx Dementia: No Hx Asthma: No Hx of COPD: No Hx Cardiac Disorders: No Hx Congestive Heart Failure: No Hx Pacemaker: No Hx Hypertension: No Hx Thyroid Disease: No Hx Diabetes: No Hx Gastroesophageal Reflux: No Hx Renal Disease: No Hx Cancer: No Hx of HIV: No Hx Hepatitis C: No Hx MRSA: No Surgical History: appendectomy, tonsillectomy - Vaccination History Hx Tetanus, Diphtheria Vaccination: Yes Hx Influenza Vaccination: No Hx Pneumococcal Vaccination: No - Social History Hx Tobacco Use: No Hx Alcohol Use: No Hx Substance Use: No Hx Substance Use Treatment: No Hx Depression: No Hx Physical Abuse: No Hx Emotional Abuse: No Hx Suspected Abuse: No - Female History Patient is a Female of Child Bearing Age (10 -59 yrs old): Yes Hx Last Menstrual Period: 03/17/14 Patient : No Expected Date of Delivery:: 03/08/14 - Triage Comment ED Triage Comment: Laser removal of tatoos to hands and fingers. Would like advise on care and work release for few days to care for hands Family Medical History - Family History Grandparents Living Status: Still Living Hx Cardiac Disease: Yes - CABG Hx Family Diabetes: Yes Departure - Departure Clinical Impression: Patient left without being seen Time of Disposition: 00:44 Disposition: Left Without Being Seen Departure Forms: Patient Portal Self Enrollment Home Medications: Ambulatory Orders Anxiety Med PRN 02/21/19
== END 2019-02-21 22:31 | disposition left against medical advice (07) ==
LOC: ER 21:05
DX: T23.002A Burn of unspecified degree of left hand, unspecified site, initial encounter (principal); Z53.21 Procedure and treatment not carried out due to patient leaving prior to being seen by health care provider

== ENCOUNTER 2020-10-13 18:45 | Emergency (ER) | payer SELFPAY ==
--- NOTE | 2020-10-13 19:30 | ED.PDOC ---
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 Hx of two prior miscarriages. No n/v. no dysuria. no shortness of breath or dizziness. Is suppose to be on progesterone shots, but has missed the past few days. Allergies/Adverse Reactions: Allergies NO KNOWN ALLERGY Allergy (Verified 01/20/19 19:22) Home Medications: Ambulatory Orders Anxiety Med PRN 02/21/19 Review of Systems - Review of Systems Constitutional: Denies: chills, fever EENTM: Denies: blurred vision, mouth pain Respiratory: Denies: cough, short of breath Cardiology: Denies: chest pain, palpitations Gastrointestinal/Abdominal: States: abdominal pain. Denies: nausea, vomiting Genitourinary: Denies: dysuria, frequency Musculoskeletal: Denies: back pain Skin: Denies: rash Neurological: Denies: headache Endocrine: Denies: increased thirst, increased urine Hematologic/Lymphatic: Denies: easy bleeding, easy bruising Past Medical History (General) - Patient Medical History Hx Seizures: No Hx Stroke: No Hx Dementia: No Hx Asthma: No Hx of COPD: No Hx Cardiac Disorders: No Hx Congestive Heart Failure: No Hx Pacemaker: No Hx Hypertension: No Hx Thyroid Disease: No Hx Diabetes: No Hx Gastroesophageal Reflux: No Hx Renal Disease: No Hx Cancer: No Hx of HIV: No Hx Hepatitis C: No Hx MRSA: No Surgical History: appendectomy, tonsillectomy, Hysterectomy - Vaccination History Hx Tetanus, Diphtheria Vaccination: Yes Hx Influenza Vaccination: No Hx Pneumococcal Vaccination: No - Social History Hx Tobacco Use: No Hx Alcohol Use: No Hx Substance Use: No Hx Substance Use Treatment: No Hx Depression: No Hx Physical Abuse: No Hx Emotional Abuse: No Hx Suspected Abuse: No - Female History Hx Last Menstrual Period: 08/09/20 Patient : Yes Expected Date of Delivery:: 03/08/14 Family Medical History - Family History Grandparents Living Status: Still Living Hx Cardiac Disease: Yes - CABG Hx Family Diabetes: Yes Physical Exam - Physical Exam General Appearance: Alert, Comfortable, No apparent distress, Well Developed, Well Groomed, Well Hydrated, Well Nourished Eyes, Ears, Nose, Throat Exam: normal ENT inspection Neck: non-tender, full range of motion, supple, normal inspection Cardiovascular/Respiratory: regular rate, rhythm, no M/R/G, normal peripheral pulses, no JVD, normal breath sounds, no respiratory distress Gastrointestinal/Abdominal: normal bowel sounds, non tender, soft, no organomegaly Rectal Exam: deferred Pelvic Exam: other - patient refused Back Exam: normal inspection, no vertebral tenderness Extremity: non-tender, normal inspection, no pedal edema, no calf tenderness, normal capillary refill Neurologic: no motor/sensory deficits, alert, normal mood/affect Skin Exam: normal color, warm/dry Progress - Progress Progress: 10/13/20 19:33 recommend we transfer to other ER for ultrasound, patient refused, 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 She also declined a pelvic exam. The data reviewed when caring for this patient included: nurse notes, prior records, etc. The history and assessments from nurses notes were reviewed and considered, and the patient's home medication list was also reviewed and considered. My assessment and the results of testing completed here in the ED were discussed with the patient/family. All questions were answered, and they express understanding of my assessment and the plan. Strict return precautions given. patient left LOGAN Dillard #[id number] 10/13/20 20:17 - Results/Orders Results/Orders: Laboratory Results WBC 9.3 K/mm3 (4.8-10.8) 10/13/20 19: RBC 4.27 M/mm3 (4.20-5.40) 10/13/20 19:09 Hgb 12.4 gm/dL (12.0-16.0) 10/13/20 19:09 Hct 35.9 % (36.0-47.0) L 10/13/20 19: MCV 84.1 fl (81.0-99.0) 10/13/20 19: MCH 29.0 pg (27.0-31.0) 10/13/20 19: MCHC 34.5 g/dL (33.0-37.0) 10/13/20 19: RDW 15.3 % (11.5-14.5) H 10/13/20 19:09 Plt Count 262 K/mm3 (130-400) 10/13/20 19:09 MPV 7.8 fl (7.40-10.4) 10/13/20 19:09 Absolute Neuts (auto) 6.80 K/uL (1.8-6.8) 10/13/20 19:09 Absolute Lymphs (auto) 1.70 K/uL (1.0-3.4) 10/13/20 19:09 Absolute Monos (auto) 0.70 K/uL (0.2-0.8) 10/13/20 19:09 Absolute Eos (auto) 0.00 K/uL (0.0-0.4) 10/13/20 19:09 Absolute Basos (auto) 0.00 K/uL (0.0-0.1) 10/13/20 19:09 Neutrophils % 73.4 % (42.0-78.0) 10/13/20 19:09 Lymphocytes % 18.4 % (20.0-50.0) L 10/13/20 19:09 Monocytes % 7.4 % (2.0-9.0) 10/13/20 19:09 Eosinophils % 0.5 % (1.0-5.0) L 10/13/20 19:09 Basophils % 0.3 % (0.0-2.0) 10/13/20 19:09 PT 9.9 SECONDS (9.0-10.9) 10/13/20 19:26 INR 1.00 (0.9-1.15) 10/13/20 19:26 PTT (SP) 24.7 SECONDS (21.8-31.6) 10/13/20 19:26 Sodium 137 mmol/L (135-145) 10/13/20 19:09 Potassium 3.7 mmol/L (3.6-5.0) 10/13/20 19:09 Chloride 101 mmol/L (101-111) 10/13/20 19:09 Carbon Dioxide 26 mmol/L (21-31) 10/13/20 19:09 Anion Gap 13.7 (12-18) 10/13/20 19:09 BUN 10 mg/dL (7-18) 10/13/20 19:09 Creatinine 0.60 mg/dL (0.6-1.3) 10/13/20 19:09 BUN/Creatinine Ratio 16.7 (10-20) 10/13/20 19:09 Random Glucose 67 mg/dL (70-105) L 10/13/20 19:09 Serum Osmolality 271.1 mOsm/L (275-295) L 10/13/20 19:09 Calcium 8.9 mg/dL (8.4-10.2) 10/13/20 19:09 Total Bilirubin 0.3 mg/dL (0.2-1.0) 10/13/20 19:09 AST 15 IU/L (10-42) 10/13/20 19:09 ALT 20 IU/L (10-60) 10/13/20 19:09 Alkaline Phosphatase 48 IU/L (42-121) 10/13/20 19:09 Serum Total Protein 6.8 gm/dL (6.4-8.2) 10/13/20 19:09 Albumin 3.7 g/dl (3.2-5.5) 10/13/20 19:09 Globulin 3.1 gm/dL (2.3-3.5) 10/13/20 19:09 Albumin/Globulin Ratio 1.2 (1.1-1.9) 10/13/20 19:09 Beta HCG, Quant 160202.0 mIU/mL (0-4.9) H 10/13/20 19:09 Urine Color Yellow (Yellow) 10/13/20 19:34 Urine Appearance Clear (Clear) 10/13/20 19:34 Urine pH 7.0 (4.5-7.8) 10/13/20 19:34 Ur Specific Reva 1.025 (1.005-1.030) 10/13/20 19:34 Urine Protein Negative mg/dL 10/13/20 19:34 Urine Glucose (UA) Negative mg/dL (Negative) 10/13/20 19:34 Urine Ketones Negative mg/dL (NEGATIVE) 10/13/20 19:34 Urine Blood Negative (Negative) 10/13/20 19:34 Urine Nitrite Negative 10/13/20 19:34 Urine Bilirubin Negative (NEGATIVE) 10/13/20 19:34 Urine Urobilinogen 0.2 mg/dL (0.2-1.0) 10/13/20 19:34 Ur Leukocyte Esterase Negative (Negative) 10/13/20 19:34 Urine RBC 0 /hpf 10/13/20 19:34 Urine WBC 1-3 /hpf 10/13/20 19:34 Ur Epithelial Cells 3-5 /hpf 10/13/20 19:34 Urine Bacteria 0 10/13/20 19:34 Patient ABO/Rh O POSITIVE 10/13/20 19:09 Procedures - Ultrasound Progress: bedside US shows no free fluid, IUP with heart tones noted. Departure - Departure Clinical Impression: Threatened ICD-10 Supporting Text: recommend patient transfer for a formal US, explained risk of ectopic , this could be fatal. patient acknowledge understanding. Time of Disposition: 20:17 Disposition: Left Against Medical Advice Condition: Fair Departure Forms: ED Discharge - Pt. Copy, Patient Portal Self Enrollment Instructions: Threatened Miscarriage (DC), Bleeding With (DC) Referrals: ASHLEE CAPUTO [Primary Care Provider] - 1-2 Days Home Medications: Ambulatory Orders Anxiety Med PRN 02/21/19
[2020-10-13 19:31] VITALS: O2SAT 100
[2020-10-13 20:27] VITALS: BP 122/75; TEMP 97.4
== END 2020-10-13 20:27 | disposition left against medical advice (07) ==
LOC: ER 18:45
DX: I20.0 Unstable angina (principal); Z3A.01 Less than 8 weeks gestation of pregnancy; Z53.29 Procedure and treatment not carried out because of patient's decision for other reasons